=== PATIENT | female | born 1990 | race Caucasian/White ===

== ENCOUNTER 2018-10-22 10:15 | Inpatient (IN) | payer OTHER ==
[2018-10-22] MEDS ORDERED: Methylergonovine 0.2 MG/ML VIAL IM PRN (11:28)
[2018-10-22] MEDS ORDERED: Ibuprofen 800 MG TAB PO PRN (11:28)
[2018-10-22] MEDS ORDERED: Acetaminophen 500 MG TAB PO PRN (11:28)
[2018-10-22] MEDS ORDERED: HYDROcodone/Acetaminophen 5/325 mg Tablet PO PRN (11:28)
[2018-10-22] MEDS ORDERED: Promethazine HCl 25 MG/ML VIAL IM PRN (11:28)
[2018-10-22] MEDS ORDERED: Ondansetron PF 4 MG/2 ML Vial IVP PRN (11:28)
[2018-10-22] MEDS ORDERED: NS / Oxytocin 40 units/1000ml 1,000 ML IV PRN (11:28)
[2018-10-22] MEDS ORDERED: Meperidine HCl/PF 25 MG/ML VIAL IM/IV PRN (11:28)
[2018-10-22] MEDS ORDERED: Carboprost 250 MCG/ML AMP IM PRN (11:28)
[2018-10-22] MEDS ORDERED: Butorphanol Tartrate 1 MG/ML VIAL SLOW IVP PRN (11:28)
[2018-10-22] MEDS ORDERED: Misoprostol 200 MCG TAB PR PRN (11:28)
[2018-10-22 12:08] VITALS: BMI 33.6
[2018-10-22] MEDS: Lactated Ringer's 1,000 ML IV SCH ×3 (12:31→21:22)
--- NOTE | 2018-10-22 12:53 | PDOC.EVN ---
Event Note - Event Note Event Note: Cook's balloon placed without complication. SVE 1/thick/-2, vertex. Membranes intact. FWB category I. Baseline 150. Start pitocin.
[2018-10-22] MEDS: NS w/ Oxytocin 10 units 500 ML IV SCH (13:08)
[2018-10-22 13:21] LABS: Hemoglobin 11.5 g/dL (12.0-16.0); Mean Corpuscular HGB CONC 34.7 g/dL (32.0-36.0); Mean Corpuscular Hemoglobin 32.6 pg (27.0-31.0); Mean Corpuscular Volume 93.8 fL (78.0-98.0); Mean Platelet Volume 7.2 fL (7.4-10.4); Platelet Count 154 thou/uL (130-400); Red Blood Cell (RBC) Count 3.52 mill/uL (4.20-5.40); White Blood Cell (WBC) Count 7.7 thou/uL (4.8-10.8)
[2018-10-22 13:55] LABS: HBSAg Index 0.29 S/CO (0-0.99); Hep B Surf Ag Non-Reactive S/CO (NonReactive)
[2018-10-22 14:20] LABS: Syphilis Antibody Nonreactive (Nonreactive); Syphilis Antibody Index 0.02 S/CO (<1.00 Non-Reactive)
[2018-10-23] MEDS: Lactated Ringer's 1,000 ML IV SCH ×4 (05:26→20:05)
[2018-10-23] MEDS: NS w/ Oxytocin 10 units 500 ML IV SCH ×2 (06:23→14:35)
[2018-10-23] MEDS ORDERED: Fentanyl 4 mcg/Bup 0.1% Cadd 100 ML ONE ×3 (07:13→20:46)
[2018-10-23] MEDS ORDERED: diphenhydrAMINE 50 MG/ML VIAL IVP PRN ×2 (07:52→22:52)
[2018-10-23] MEDS ORDERED: Naloxone HCl 0.4 mg/ml Vial IVP PRN ×4 (07:52→22:52)
[2018-10-23] MEDS ORDERED: Acetaminophen 325 MG TAB PO PRN (07:52)
[2018-10-23] MEDS ORDERED: ePHEDrine/0.9% NaCl/PF SYRINGE 50 mg/10 ml SLOW IVP PRN (07:52)
[2018-10-23] MEDS ORDERED: Lactated Ringer's 500 ML IV PRN (07:52)
[2018-10-23] MEDS ORDERED: Ondansetron PF 4 MG/2 ML Vial IVP PRN ×2 (07:52→22:52)
[2018-10-23] MEDS ORDERED: Promethazine HCl 25 MG/ML VIAL IM PRN ×2 (07:52→22:52)
[2018-10-23] MEDS ORDERED: Eucerin (Mineral Oil/Petrolatum,White) 30 gm Jar TOP PRN (07:52)
[2018-10-23] MEDS ORDERED: Communication Order-Pharmacy FS SCH ×2 (08:00→23:00)
[2018-10-23] MEDS ORDERED: Fentanyl 4 mcg/Bupivacaine 0.1% Cassette 100 ML EPIDURAL SCH (08:00)
[2018-10-23] MEDS ORDERED: Bupivacaine/Epinephrine 0.25% 30 ML VIAL ONE (11:11)
[2018-10-23] MEDS ORDERED: Bupivacaine PF 0.5% 30 ML VIAL ONE (11:11)
--- NOTE | 2018-10-23 12:40 | PDOC.EVN ---
Event Note - Event Note Event Note: AROM this AM at 0745, copious clear fluid, baby tolerated well. Now hat bedside for reevaluation. CTX were not adequate earlier. IUPC placed at 1018am. MVU at that time were <200. Increased pitocin to 26 units and now MVU about 225. SVE 7-8/80/-2. Placed in far right lateral on peanut ball. Some recurrent variable decels with contractions. Good variability between with accelerations. Overall Category II. Continue pitocin for now. Consider amnioinfusion if variable do not resolve with repositioning.
[2018-10-23] MEDS ORDERED: Ketorolac Tromethamine 30 MG/ML VIAL ONE ×2 (15:05→23:51)
[2018-10-23] MEDS ORDERED: Bicitra 30 ML UDCUP ONE (21:04)
--- NOTE | 2018-10-23 21:10 | PDOC.EVN ---
Event Note - Event Note Event Note: Here to reevaluate the patient again. No cervical change since this AM. SVE 7-8 /80/-2. Variable decels have resolved. This afternoon due to inadequate contraction pattern on 26 units of pitocin, pitocin was stopped for 30-60 minutes and restarted. Since then contractions have been inadequate, 8-10 minutes apart an only 20-50 MVU each. Discussed with Dr. Sweeney and given the dysfunctional pattern despite adequate dose of pitocin and advanced cervical dilation decision was made to proceed with primary section. Discussed with pt and her at bedside and they are in agreement. Pitocin stopped at this time. Will give ancef and azithromycin prior to surgery. Anticipate uterine atony so methergine, hemabate, cytotec, and 2 units [employer]BC communications consultant to the OR. FWB category I right now. Maternal heart rate 90's-130's recently - when 130's associated with nausea and SOB. Resolved as heart rate came down. BP stable throughout, O2sat 100% on room air.
[2018-10-23] MEDS ORDERED: Bicitra 30 ML UDCUP PO SCH (21:15)
[2018-10-23] MEDS ORDERED: Azithromycin 500 MG in Sodium Chloride 0.9% 250 ML 250 ML IVPB SCH (21:30)
[2018-10-23] MEDS ORDERED: CEFAZOLIN 2 GM in Premix Bag 1 BAG IVPB SCH (21:30)
[2018-10-23] MEDS ORDERED: Misoprostol 200 MCG TAB ONE (21:38)
[2018-10-23] MEDS ORDERED: Carboprost 250 MCG/ML AMP ONE (21:39)
[2018-10-23] MEDS ORDERED: Methylergonovine 0.2 MG/ML VIAL ONE (21:39)
--- NOTE | 2018-10-23 22:10 | PDOC.EVN ---
Event Note - Event Note Event Note: OBGYN miner operator CS Note PREOP NOTE I was asked to intervene (by Dr Huerta) with a primary CS for Ms Muller for FTP, uterine inability to contract despite pitocin for more than 6 hrs. Pitocin has been turned off and on without success. Exam was 6cm or so and unchanged. Patient was initially unsure about a CS but has know agreed. I have met the patient at bedside and reviewed the plan of care. Plan d/w Dr Huerta as well.
[2018-10-23] MEDS ORDERED: Lidocaine 2% 10 ML INJ ONE (22:45)
[2018-10-23] MEDS ORDERED: L&D-Morphine 4 MG/ML VIAL SLOW IVP PRN (22:52)
[2018-10-23] MEDS ORDERED: HYDROmorphone 2 MG/ML VIAL SLOW IVP PRN (22:52)
[2018-10-23] MEDS ORDERED: Meperidine HCl/PF 25 MG/ML VIAL SLOW IVP PRN (22:52)
[2018-10-23] MEDS ORDERED: Hydrocerin (Eucerin) Cream 120 gm Jar TOP PRN (22:52)
[2018-10-23] MEDS ORDERED: Ondansetron HCl/PF 4 MG/2 ML Vial IVP PRN (22:52)
[2018-10-23] MEDS ORDERED: Naloxone HCl 0.4 mg/ml Vial IV PRN (22:52)
[2018-10-23] MEDS ORDERED: Promethazine HCl 25 MG SUPP PR PRN (22:52)
[2018-10-23] MEDS ORDERED: MORPHINE 5 MG/10 ML PF VIAL ONE (22:55)
[2018-10-23] MEDS ORDERED: Oxytocin 10 UNITS/ML VIAL ONE (22:55)
[2018-10-23] MEDS ORDERED: Ketorolac Tromethamine 30 MG/ML VIAL IVP SCH (23:00)
[2018-10-23] MEDS ORDERED: Lidocaine 1% PF 5 ML VIAL ONE (23:08)
[2018-10-23] MEDS: Lidocaine 1% (PF) 30 ML VIAL SC PRN ×2 (23:09→23:45)
[2018-10-23] MEDS ORDERED: Lidocaine 1% (PF) 30 ML VIAL ONE ×2 (23:09→23:34)
[2018-10-23] MEDS ORDERED: Fentanyl 100 MCG/2 ML VIAL ONE (23:30)
[2018-10-24] MEDS ORDERED: Acetaminophen 1,000 MG in Premix Bag 1 BAG IVPB SCH (00:15)
[2018-10-24] MEDS ORDERED: Lanolin Ointment 7 GM TUBE TOP PRN (00:26)
[2018-10-24] MEDS ORDERED: diphenhydrAMINE 25 MG CAP PO PRN (00:26)
[2018-10-24] MEDS ORDERED: Bisacodyl 10 MG SUPP PR PRN (00:26)
--- NOTE | 2018-10-24 00:31 | OP ---
DATE OF PROCEDURE: 10/23/2018 The time of delivery was roughly 2330 hours or so. PREOPERATIVE DIAGNOSES: 1. Multigravida at term with failure to progress at 6 cm. 2. Suspected uterine inertia/unresponsiveness to Pitocin. POSTOPERATIVE DIAGNOSES: 1. Multigravida at term with failure to progress at 6 cm. 2. Status post primary low transverse . PROCEDURE PERFORMED: 1. Primary low transverse section via Pfannenstiel skin incision. 2. Double-layer uterine closure. TIN RECOVERY WORKER: 1. Ezio Huerta. 2. Cliff Merritt (3rd year medical student). ANESTHESIA: Labor epidural. ANTIBIOTICS: Ancef and Zithromax given perioperatively. IV FLUIDS: About 1 L crystalloid. ESTIMATED BLOOD LOSS: About 500 mL by estimated blood loss, but the QBL is pending. COMPLICATIONS: None. COUNTS: Correct. FINDINGS: 1. The baby is in a cephalic presentation. 2. Baby's head delivered about intermediate and then due to incisional tightening around the baby's head (tight maternal abdominal wall), I applied a vacuum for assisted head delivery. This was one traction attempt with no pop-off with easy head delivery. 3. Hemostasis, post uterine repair. 4. Normal tubes and ovaries bilaterally. 5. Baby was a female with Apgars 8 and 9. 6. Three-vessel cord intact placenta. 7. Urine output is by Gooden (clear urine, please see Anesthesia report). PATHOLOGY: None. Cord gases are not sent as the baby was vigorous. DISPOSITION: To recovery room in good and stable condition. INDICATIONS FOR PROCEDURE: This is a patient who was at 6 to 7 cm with no progress for a prolonged period of time. Diagnosis is uterine inertia or unresponsiveness to Pitocin. DESCRIPTION OF PROCEDURE: The patient was dosed of her labor epidural and was taken to the OR in Labor and Delivery. Abdomen was prepped and draped in the usual sterile fashion. A Pfannenstiel skin incision was made with a scalpel in the usual manner. Bovie cautery was used to dissect the subcutaneous tissue off the fascia. This was done with Bovie cautery on cut mode. Fascia was entered in a transverse fashion without complication. Rectus muscles were away from the midline. Underlying peritoneum was elevated with hemostats and entered by blunt dissection. Care was taken to avoid underlying structures. No intraabdominal pathology was noted, and an Ramu retractor was placed into the wound for retraction. A low transverse hysterotomy was made without bladder flap creation. Clear fluid was noted. Baby was delivered about intermediate of the head. Next, due to tightness of the maternal abdomen around the head, a vacuum was applied in the appropriate manner to assist head delivery. No pop-off was noted and only one traction occurred after less delivery of the baby's head. Shoulders and remainder of the body were then delivered without incident. Cord was doubly clamped, transected, and the baby was handed to the NICU team present in delivery. Cord was delayed about 30 seconds for clamping. The uterus was left in situ for repair, and a dry laparotomy sponge was used to curettage the uterine cavity. Hysterotomy was closed in two layers with the first layer being a running locking layer and the second layer being an imbricating closure. We used 0 Monocryl for both layer closures. We placed one little piece of Interceed on the maternal left side of the hysterotomy for a small superficial serosal bleeder and this was rendered hemostatic. We then copiously irrigated, confirmed hemostasis was again noted, and then the abdomen was closed. The rectus muscles were reapproximated in the midline using a mattress suture of 2-0 chromic. The fascia was closed with 0 PDS suture x1 in a running nonlocking fashion. Subcutaneous tissue was not closed as it was less than 2 cm. The subcutaneous tissue was injected with 10 mL of 1% plain lidocaine for pain control. Skin was closed with 3-0 Monocryl using a Austen straight needle without complication. Dermabond was placed over the incision as a liquid barrier. Job ID: [id number]
[2018-10-24] MEDS: NS / Oxytocin 40 units/1000ml 0 ML ONE ×2 (00:48→01:18)
[2018-10-24] MEDS: Lactated Ringer's 1,000 ML IV SCH (04:26)
[2018-10-24 05:11] LABS: Hemoglobin 9.5 g/dL (12.0-16.0); Mean Corpuscular HGB CONC 34.2 g/dL (32.0-36.0); Mean Corpuscular Hemoglobin 32.6 pg (27.0-31.0); Mean Corpuscular Volume 95.3 fL (78.0-98.0); Mean Platelet Volume 6.7 fL (7.4-10.4); Platelet Count 99 thou/uL (130-400); White Blood Cell (WBC) Count 10.6 thou/uL (4.8-10.8)
[2018-10-24] MEDS: Docusate Calcium (SURFAK) 240 MG CAP PO SCH ×2 (10:33→20:57)
[2018-10-24] MEDS: Ferrous Sulfate 325 MG TAB PO SCH ×2 (10:34→17:18)
[2018-10-24] MEDS: Ketorolac Tromethamine 30 MG/ML VIAL IVP PRN ×2 (10:34→17:18)
[2018-10-24] MEDS: Simethicone Chewable 80 MG TAB PO PRN (10:34)
[2018-10-24] MEDS ORDERED: HYDROcodone/Acetaminophen 5/325 mg Tablet PO PRN (11:00)
--- NOTE | 2018-10-24 14:47 | PDOC.PP ---
Post Progress Note Post Day #: 1 Subjective: Pain controlled, well, no ambulation yet, conley still in. HR resolved, no more pre-syncope. PO intake tolerated: yes Flatus: yes Ambulation: no Vital Signs (12 hours) Temp Pulse Resp BP Pulse Ox 10/24/18 11:48 97.8 F 81 20 107/56 L 10/24/18 08:35 98 10/24/18 08:12 98.7 F 75 16 108/59 L 98 10/24/18 06:15 18 98 10/24/18 04:00 97.6 F 67 18 107/57 L 97 10/24/18 03:14 97 10/24/18 02:55 98.2 F 76 18 107/56 L Weight Weight 215 lb - Physical Examination General: NAD Cardiovascular: no m/r/g, RRR Respiratory: clear to auscultation bilaterally, non-labored breathing Abdominal: + bowel sounds, lochia, no distention, appropriately TTP Skin: CS incision dry & intact Result Diagrams: 10/24/18 04:56 Additional Labs: Post Labs Blood Type O POSITIVE 10/22/18 12:59 Hep Bs Antigen Non-Reactive S/CO (NonReactive) 10/22/18 12:59 (1) Single delivery by section Code(s): O82 - ENCOUNTER FOR DELIVERY WITHOUT INDICATION Status: Acute - Assessment/Plan Post op day #1 Routine care Tachycardia resolved - continue to monitor once ambulatory
[2018-10-24] MEDS ORDERED: Sodium Chloride 0.9% 10 ML ONE (17:13)
[2018-10-25] MEDS: HYDROcodone/Acetaminophen 5/325 mg Tablet PO PRN ×4 (01:11→19:47)
[2018-10-25] MEDS: Ibuprofen 800 MG TAB PO SCH ×5 (02:07→17:09)
[2018-10-25] MEDS: Ferrous Sulfate 325 MG TAB PO SCH ×2 (08:51→17:09)
[2018-10-25] MEDS: Docusate Calcium (SURFAK) 240 MG CAP PO SCH ×2 (08:51→22:07)
--- NOTE | 2018-10-25 16:06 | PDOC.PP ---
Post Progress Note Post Day #: 2 Subjective: Doing well. well. Ambulating. Pain controlled. PO intake tolerated: yes Flatus: yes Ambulation: yes Vital Signs (12 hours) Temp Pulse Resp BP Pulse Ox 10/25/18 12:02 98.3 F 85 20 106/59 L 10/25/18 08:50 98.4 F 77 20 108/64 98 10/25/18 04:30 98.3 F 77 18 97/52 L Weight Weight 215 lb - Physical Examination General: NAD Cardiovascular: no m/r/g, RRR Respiratory: clear to auscultation bilaterally, non-labored breathing Abdominal: + bowel sounds, lochia, no distention, appropriately TTP Result Diagrams: 10/24/18 04:56 Additional Labs: Post Labs Blood Type O POSITIVE 10/22/18 12:59 Hep Bs Antigen Non-Reactive S/CO (NonReactive) 10/22/18 12:59 (1) Single delivery by section Code(s): O82 - ENCOUNTER FOR DELIVERY WITHOUT INDICATION Status: Acute - Assessment/Plan Routine PP care Doing well post-op Home tomorrow Dr. Jorge Landrum to round tomorrow.
[2018-10-25] MEDS: Simethicone Chewable 80 MG TAB PO PRN (19:50)
[2018-10-26] MEDS: HYDROcodone/Acetaminophen 5/325 mg Tablet PO PRN ×2 (01:40→08:09)
[2018-10-26] MEDS: Ibuprofen 800 MG TAB PO SCH ×2 (01:40→05:57)
[2018-10-26] MEDS: Ferrous Sulfate 325 MG TAB PO SCH (08:09)
[2018-10-26] MEDS: Docusate Calcium (SURFAK) 240 MG CAP PO SCH (08:09)
[2018-10-26 08:16] VITALS: BP 102/66; TEMP 98.1
== END 2018-10-26 11:45 | disposition home or self-care (01) | DRG 788 ==
LOC: L&D 11:12 → 3SW 10-24 02:00
PROVIDERS: ADMIT Family Medicine; ATTEND Family Medicine
PROC: 3E033VJ Introduction of Other Hormone into Peripheral Vein, Percutaneous Approach (ICD-10-PCS; 2018-10-22)
PROC: 0U7C7ZZ Dilation of Cervix, Via Natural or Artificial Opening (ICD-10-PCS; 2018-10-22)
PROC: 10D00Z1 Extraction of Products of Conception, Low, Open Approach (ICD-10-PCS; principal; 2018-10-23)
DX: O99.42 Diseases of the circulatory system complicating childbirth (principal); Z3A.38 38 weeks gestation of pregnancy; R00.0 Tachycardia, unspecified; Z37.0 Single live birth; O61.0 Failed medical induction of labor
CPT/HCPCS: 36415; 51702; 85027; 86780; 86850; 86900; 86901; 87340; C1726; J0131; J0456; J0690; J1885; J2001; J2210; J2270; J2405; J2590; J3010; J3490; J7050; Q0163; S0020